=== PATIENT | male | born 1965 | race Caucasian/White ===

== ENCOUNTER 2017-07-14 08:00 | Outpatient (CLI) | payer OTHER | END 2017-07-14 08:01 | disposition home or self-care (01) | LOC: BICMRI 08:00 | PROVIDERS: ATTEND Chiropractor | DX: M47.26 Other spondylosis with radiculopathy, lumbar region (principal); M51.16 Intervertebral disc disorders with radiculopathy, lumbar region; M48.061 Spinal stenosis, lumbar region without neurogenic claudication | CPT/HCPCS: 72148 ==

== ENCOUNTER 2017-08-01 06:50 | Day surgery (SDC) | payer OTHER ==
[2017-07-29 15:27] VITALS: BMI 35.7
--- NOTE | 2017-07-29 15:35 | HP ---
HISTORY OF PRESENT ILLNESS: Mr. Fowler is a 52-year-old male who presents with low back pain and left -sided numbness, tingling and pain in the L5 dermatome. He has had this pain since 06/19 after bendi ng over to give his dog a treat and he heard a pop that follow up with extreme left leg pain. He griselda t to the emergency department and was given a Medrol Dosepak that seemed to help some. His pain has improved some; however, returns quickly when standing and when extending his back. The pain is made worse with walking and made some better with sitting and lying down in the position as well as taking pain medication. He has not had any physical therapy or NOAH injections for this pain. He den ies any bowel or bladder incontinence. IMAGING: At [facility], MRI. REVIEW OF SYSTEMS: Ten-point review of systems completed, otherwise negative, unless stated in the a mac HPI. PAST MEDICAL HISTORY: None. FAMILY HISTORY: Mother is alive and siblings are alive. SOCIAL HISTORY: The patient is a former smoker. 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 He is a nd has 1 child. MEDICATIONS: 1. Clindamycin hydrochloride 150 mg p.r.n. 2. Hydrocodone/acetaminophen 5/325 mg tablet 1 tablet as needed q.6 hours p.r.n. 3. Bactrim DS 800-160 mg tablet 1 tablet orally once in the office. 4. Bactroban 2% ointment one application in the affected area externally 3 x a day. Medication list reviewed and reconciled with the patient. ALLERGIES: TETRACYCLINE HCL causes itchiness. PHYSICAL EXAMINATION: HEENT: Head is normocephalic, atraumatic. Hearing intact. Moist mucous membranes. Trachea is midl ine. EYES: Pupils are equal and reactive to light. Extraocular muscles are intact. Sclerae is white, no nicteric. PSYCHIATRIC: Normal mood and affect. CARDIOVASCULAR/CARDIOPULMONARY: No cyanosis or clubbing noted. Intact pedal pulses bilaterally. MUSCULOSKELETAL: Lower extremity 4/5 strength bilaterally in iliopsoas, quadriceps, hamstrings, tibi мария anterior, sensory hallucis longus. The patient is tender to palpation in the midline lumbar spi ne and buttocks on the left. Sensory deficit in the left L5 dermatome. RESPIRATORY: Even respirations, good effort in all lung knapp, sound clear with no wheezing or crac kles. NEUROLOGIC: Cranial nerves II through XII are grossly intact. Speech is fluent, he answers my quest ions appropriately, he has antalgic gait and station. ASSESSMENT: 1. Lumbar radiculopathy. 2. Intervertebral disk displacement in the lumbar region. PLAN: The patient has tried physical therapy and NOAH injections by Dr. Bejarano, and Dr. Guadarrama of [facility] a L4-L5 microdiskectomy. We reviewed the benefits, risks, alternatives, and expected results f rom surgery. The patient is fully aware of the risks and is willing to try surgery at this time to r elieve the pain in his leg. If there are any further questions, please feel free to contact Neurosurgery.
[2017-08-01] MEDS ORDERED: CEFAZOLIN/Water 2 GM/20 ML SYRINGE ONE (07:33)
[2017-08-01 08:09] LABS: Hemoglobin 15.8 g/dL (14.0-18.0); Mean Corpuscular HGB CONC 33.2 g/dL (32.0-36.0); Mean Corpuscular Hemoglobin 29.8 pg (27.0-31.0); Mean Corpuscular Volume 89.6 fl (80.0-94.0); Mean Platelet Volume 5.8 fL (7.4-10.4); Platelet Count 352 thou/uL (130-400); RBC Distribution Width 12.5 % (11.5-14.5); Red Blood Cell (RBC) Count 5.32 mill/uL (4.70-6.10); White Blood Cell (WBC) Count 8.1 thou/uL (4.8-10.8)
[2017-08-01 08:21] LABS: PTT 29.8 SEC (22.9-36.1); Prothrombin Time 13.7 SEC (12.0-14.7)
[2017-08-01] MEDS ORDERED: Thrombin 5000 UNITS/5 ML VIAL ONE (09:15)
[2017-08-01] MEDS ORDERED: Sodium Chloride 0.9% 10 ML ONE (09:15)
[2017-08-01] MEDS ORDERED: Bupivacaine PF 0.5% 30 ML VIAL ONE (09:15)
[2017-08-01] MEDS ORDERED: Midazolam HCl 2 mg/2 ml Vial ONE ×2 (09:51→09:52)
[2017-08-01] MEDS ORDERED: Fentanyl 100 MCG/2 ML VIAL ONE ×3 (09:51→12:52)
--- NOTE | 2017-08-01 12:33 | OP ---
DATE OF PROCEDURE: 08/01/2017 SURGEON: Jasmina Guadarrama M.D. [employer] OFFICER: Tai Mccallum PA-C PREOPERATIVE INDICATION: Treat pain, prevent neurological deterioration. PREOPERATIVE DIAGNOSES: Intervertebral disk herniation L4-L5 with left greater than right lateral re cess stenosis and lumbar radiculopathy. POSTOPERATIVE DIAGNOSES: Intervertebral disk herniation L4-L5 with left greater than right lateral r ecess stenosis and lumbar radiculopathy. OPERATIVE PROCEDURE: Laminectomy, medial facetectomy, foraminotomy with microdiskectomy, bilateral L 4-L5 operating microscope. PREOPERATIVE MEDICATIONS: Ancef 2 grams IV. DRAIN NUMBER: Zero. DRAIN TYPE: None. OPERATIVE DICTATION: The patient was brought to the operating room. General endotracheal anesthesia was induced. The patient was positioned prone on the operating table and his chest and hips support ed by gel-filled chest rolls. A lateral fluoro radiograph was used to plan our incision. The lumbar skin was sterilely prepped and draped. We opened with a 10 blade knife and controlled bleeding with bipolar and monopolar cautery. We used monopolar cautery to dissect through the subcutaneous tissue s to the thoracodorsal fascia. We incised the fascia in the midline and reflected the paraspinal mus cles off the spinous process and lamina of L4 and L5. A self-retaining retractor was placed. A late ral fluoro radiograph was used to confirm the level upon which we were operating. We then used bone rongeurs to remove the spinous process of L4 and the superior portion of L5. Using a Kerrison rongeu r, we fashioned a laminectomy at L4-L5 and widened the laminectomy defect. We brought the operating microscope into the field. Under microscopic magnification using microsurgical techniques, we removed the yellow ligament in a p iecemeal fashion. We undermined the lateral recesses and remove the ventral osteophytes from the fac et joints to decompress the lateral recess with Kerrison rongeurs and controlled bleeding with gentle bipolar cautery. We then brought a nerve root retractor in the field and gently retracted the left- sided L5 nerve root medially under we found a disk protrusion. We gently incised the corner of the d isk protrusion removed one very large fragment of disk emanated from the central portion of the spina l canal. After that portion of the diskectomy, all that remained was some osteophytes on the inferio r corner of L4 with a pushing curet, we reduced many of these osteophytes. At the completion of the osteophytectomy and diskectomy, the nerve roots were no longer under any stretch. We waxed the bone edges, controlled bleeding with gentle bipolar cautery. We performed foraminotomies over the exiting L5 nerve roots and made sure Kauffman ball probe could pass through the lateral recess and out the for zandra without impingement. We infused local anesthetic in the paraspinal muscles and closed the woun d in anatomic layers. We applied a sterile dressing. This was a clean case and no contamination.
[2017-08-01] MEDS ORDERED: Morphine 2 MG/ML SYRINGE ONE (13:00)
[2017-08-01] MEDS ORDERED: Lidocaine 1% PF 5 ML VIAL ONE (13:50)
[2017-08-01] MEDS ORDERED: PHENYLEPHRINE-NS 100 MCG/ML 10 ML SYRINGE ONE (13:50)
[2017-08-01] MEDS ORDERED: Propofol 200 MG/20 ML VIAL ONE (13:50)
[2017-08-01] MEDS ORDERED: Ondansetron HCl/PF 4 MG/2 ML Vial ONE (13:50)
[2017-08-01] MEDS ORDERED: Dexamethasone 20 MG/5 ML VIAL ONE (13:50)
[2017-08-01] MEDS ORDERED: Glycopyrrolate 0.2 MG/ML 5 ML SYRINGE ONE (13:50)
[2017-08-01] MEDS ORDERED: Cyclobenzaprine 10 MG TAB ONE (13:59)
== END 2017-08-01 16:05 | disposition home or self-care (01) ==
LOC: SDC 06:50
PROVIDERS: ATTEND Neurological Surgery
PROC: 01NB0ZZ Release Lumbar Nerve, Open Approach (ICD-10-PCS; principal; 2017-08-01)
PROC: 0ST20ZZ Resection of Lumbar Vertebral Disc, Open Approach (ICD-10-PCS; principal; 2017-08-01)
DX: M51.16 Intervertebral disc disorders with radiculopathy, lumbar region (principal); M48.061 Spinal stenosis, lumbar region without neurogenic claudication; M25.78 Osteophyte, vertebrae; G43.909 Migraine, unspecified, not intractable, without status migrainosus; Z88.8 Allergy status to other drugs, medicaments and biological substances; Z87.891 Personal history of nicotine dependence
CPT/HCPCS: 76001; 85027; 85610; 85730; 96374; A4216; J1100; J2001; J2250; J2270; J2405; J2704; J3010; J3370; J3490; S0020